=== PATIENT | male | born 1970 | race Caucasian/White ===

== ENCOUNTER 2017-01-12 01:22 | Emergency (ER) | payer MEDICAID ==
[~2017-01-12] VITALS: Ht 177.8 cm; Wt 75.0 kg
[2017-01-12 01:25] VITALS: BP 159/100
== END 2017-01-12 03:03 | disposition home or self-care (01) ==
LOC: ED 01:38
DX: F41.1 Generalized anxiety disorder (principal); F10.10 Alcohol abuse, uncomplicated; F12.10 Cannabis abuse, uncomplicated; G62.9 Polyneuropathy, unspecified
CPT/HCPCS: 99284